=== PATIENT | female | born 1970 | race Caucasian/White ===

== ENCOUNTER 2017-06-05 23:06 | Inpatient (IN) | payer BC ==
[~2017-06-05] VITALS: Ht 172.7 cm; Wt 67.3 kg
[2017-06-05 23:09] VITALS: BP 147/68; PULSE 76; RESP 18; TEMP 98.8; O2SAT 99
[2017-06-05] MEDS ORDERED: CREO3000 PO (23:18)
[2017-06-05] MEDS ORDERED: ATEN50TA PO (23:18)
[2017-06-05] MEDS ORDERED: LISI40TA PO (23:18)
[2017-06-05 23:31] VITALS: BP 154/79; PULSE 74; RESP 18
[2017-06-06] VITALS (10 sets, daily range): BP systolic 90–127; BP diastolic 54–79; PULSE 60–86; RESP 14–19; TEMP 98–101.4; O2SAT 95–98
[2017-06-06] MEDS ORDERED: SODIUM CHLOR 0.9% 1000 ML INJ 1,000 ML IV ONE (00:45)
[2017-06-06] MEDS ORDERED: ONDANSETRON HCL 4 MG/2 ML VIAL IV PUSH ONE (00:45)
[2017-06-06] MEDS ORDERED: HYDROmorphone HCL PF 2 MG/ML VIAL IV PUSH ONE (00:45)
[2017-06-06 00:49] LABS: AUTOMATED NEUTROPHIL # 11.2 TH/MM3 (1.8-7.7); BASOPHIL # 0.1 TH/MM3 (0-0.2); BASOPHIL % 0.4 % (0.0-2.0); EOSINOPHIL # 0.4 TH/MM3 (0-0.4); HEMATOCRIT 42.2 % (35.0-46.0); HEMOGLOBIN 14.7 GM/DL (11.6-15.3); LYMPH % 11.9 % (9.0-44.0); LYMPHOCYTE # 1.6 TH/MM3 (1.0-4.8); MEAN CELL VOLUME 97.1 FL (80.0-100.0); MEAN CORPUSCULAR HEMOGLOBIN 33.9 PG (27.0-34.0); MEAN CORPUSCULAR HGB CONC 34.9 % (32.0-36.0); MEAN PLATELET VOLUME 8.1 FL (7.0-11.0); MONOCYTE # 0.3 TH/MM3 (0-0.9); NEUT % 82.7 % (16.0-70.0); PLATELET COUNT 193 TH/MM3 (150-450); RED BLOOD COUNT 4.35 MIL/MM3 (4.00-5.30); RED CELL DISTRIBUTION WIDTH 13.4 % (11.6-17.2); WHITE BLOOD COUNT 13.6 TH/MM3 (4.0-11.0)
[2017-06-06 00:50] LABS: INTERNATIONAL NORMALIZED RATIO 1.1 RATIO; PROTHROMBIN TIME - PATIENT 10.7 SEC (9.8-11.6)
[2017-06-06 00:51] LABS: ALBUMIN 4.2 GM/DL (3.4-5.0); ALT (GPT) 109 U/L (10-53); AST (GOT) 174 U/L (15-37); BICARBONATE 25.9 MEQ/L (21.0-32.0); BLOOD UREA NITROGEN 8 MG/DL (7-18); CALCIUM 9.4 MG/DL (8.5-10.1); CHLORIDE 95 MEQ/L (98-107); CREATININE 0.65 MG/DL (0.50-1.00); GLUCOSE,RANDOM 94 MG/DL (74-106); SODIUM (NA) 132 MEQ/L (136-145)
[2017-06-06 00:53] LABS: ALKALINE PHOSPHATASE 89 U/L (45-117); TOTAL PROTEIN 9.1 GM/DL (6.4-8.2)
[2017-06-06] MEDS ORDERED: IOHEXOL 350 MG/ML 10 ML VIAL (for RAD DIAG) IVCONTRAST ONE (01:28)
--- NOTE | 2017-06-06 01:42 | RADRPT ---
EXAM DATE/TIME: 06/06/2017 01:19 [facility] COMPARISON: No previous studies available for comparison. INDICATIONS : Abdomen pain. IV CONTRAST: 100 cc Omnipaque 350 (iohexol) IV ORAL CONTRAST: No oral contrast ingested. RADIATION DOSE: 6.57 CTDIvol (mGy) MEDICAL HISTORY : Pancreatitis. Hypertension. SURGICAL HISTORY : None. ENCOUNTER: Initial ACUITY: 1 day PAIN SCALE: 7/10 LOCATION: Bilateral abdomen TECHNIQUE: Volumetric scanning of the abdomen and pelvis was performed. Using automated exposure control and ad justment of the mA and/or kV according to patient size, radiation dose was kept as low as reasonably achievable to obtain optimal diagnostic quality images. DICOM format image data is available electro nically for review and comparison. FINDINGS: LOWER LUNGS: The visualized lower lungs are clear. LIVER: Homogeneous density without lesion. There is no dilation of the biliary tree. No calcified gallston es. SPLEEN: Normal size without lesion. PANCREAS: There is some slight stranding and minimal adjacent fluid concerning for pancreatitis. A few punctate calcifications along the pancreatic head. Mild prominence of the main pancreatic duct.. KIDNEYS: Normal in size and shape. There is no mass, stone or hydronephrosis. Complex cystic lesion measures 2.6 cm on the upper pole left kidney containing peripheral calcification. ADRENAL GLANDS: Within normal limits. VASCULAR: There is no aortic aneurysm. BOWEL/MESENTERY: The stomach, small bowel, and colon demonstrate no acute abnormality. There is no free intraperitone al air or fluid. ABDOMINAL WALL: Within normal limits. RETROPERITONEUM: There is no lymphadenopathy. BLADDER: No wall thickening or mass. REPRODUCTIVE: 3.1 cm soft tissue nodule left pelvis likely ovary. INGUINAL: There is no lymphadenopathy or hernia. MUSCULOSKELETAL: Within normal limits for patient age. CONCLUSION: 1. Findings consistent with acute pancreatitis. 2. Complex cystic lesion upper pole left kidney measures 2.6 cm. Outpatient nonemergent MRI recommend ed for further characterization. 3. Probable normal appearing left ovary measuring 3.1 cm. Followup nonemergent pelvic sonogram recomm ended. Jasson Mancuso MD on June 06, 2017 at 1:35 Board Certified Radiologist. This report was verified electronically.
[2017-06-06] MEDS: SODIUM CHLOR 0.9% 1000 ML INJ 1,000 ML IV SCH ×3 (02:35→22:35)
[2017-06-06] MEDS ORDERED: ACETAMINOPHEN 325 MG TAB PO PRN (02:45)
[2017-06-06] MEDS ORDERED: SODIUM CHLORIDE 0.9% FLUSH 10 ML FLUSH IV FLUSH PRN ×2 (02:45)
[2017-06-06] MEDS ORDERED: NALOXONE HCL 0.4 MG/ML AMP IV PUSH PRN (02:45)
[2017-06-06] MEDS: MORPHINE SULFATE 2 MG/ML SYRINGE IV PUSH PRN ×2 (03:34→12:28)
[2017-06-06] MEDS ORDERED: LORazepam 2 MG/ML VIAL IV PUSH PRN ×4 (04:00)
[2017-06-06] MEDS ORDERED: FLUMAZENIL 0.5 MG/5 ML VIAL IV PUSH PRN (04:00)
[2017-06-06] MEDS ORDERED: LORazepam 2 MG TAB PO PRN (04:00)
[2017-06-06] MEDS: MULTIVITAMIN INJ 10 ML, FOLIC ACID INJ 1 MG in SODIUM CHLORID 0.9% 500 ML INJ 500 ML IV SCH (07:55)
[2017-06-06] MEDS: THIAMINE INJ 100 MG in SODIUM CHLORIDE 0.9% INJ 100 ML IV SCH (07:55)
[2017-06-06] MEDS: SODIUM CHLORIDE 0.9% FLUSH 10 ML FLUSH IV FLUSH SCH ×2 (09:00→20:51)
[2017-06-06] MEDS: LISINOPRIL 20 MG TAB PO SCH (09:00)
[2017-06-06] MEDS: ATENOLOL 50 MG TAB PO SCH ×2 (09:27→20:51)
--- NOTE | 2017-06-06 09:35 | PD.CONS ---
HPI History of Present Illness This is a 47 year old who is currently admitted to [facility] ED with acute pancreatitis. Pt reports having two ERCPs with stents placed since March, the most recent one a few weeks ago with what sounds to be a temporary stent, no mention of stent on CT done in ER. Pt states she has had some intermittent abdominal pain since the most recent procedure but last night she began having excruciating generalized abdominal pains associated with nausea and vomiting. Denies hematemesis and coffee ground emesis. Describes the pain as sharp and stabbing, states it is constant. She feels a little better today since she has been in the hospital. Pt does report she has chronic pancreatitis and takes Creon [address] consistent with findings consistent with acute pancreatitis. Her lipase is over 10,000 and AST and ALT are elevated with normal T bili and alk phos. Pt does admit to drinking 1-2 glasses of wine, at first it sounded like almost every night but then she states mostly on the weekend. Pt admits to smoking 1/2 PPD. (Pooja Ron) PFSH Past Medical History Chronic pancreatitis HTN Past Surgical History ERCP x 2 (Pooja Ron) Coded Allergies: Penicillins (Verified Allergy, Intermediate, 06/05/17) Social History ETOH- unsure how much, initially states 1-2 glasses of wine a night but then said mostly only on the weekends Smokes 1/2 PPD Denies illicit drug use (Pooja Ron) Review of Systems Gastrointestinal: COMPLAINS OF: Abdominal pain, Constipation, Nausea, Vomiting , DENIES: Black stools, Bloody stools, Diarrhea, Difficulty Swallowing, Odynophagia, Swelling of Abdomen, Heartburn, Hematemesis (Pooja Ron) GI Exam Vitals I&O Vital Signs Date Time Temp Pulse Resp B/P (MAP) Pulse Ox O2 Delivery O2 Flow Rate FiO2 06/06/17 07:31 69 14 93/54 (67) 95 Room Air 06/06/17 03:46 86 18 104/58 (73) 98 Room Air 06/05/17 23:31 74 18 154/79 (104) 06/05/17 23:09 98.8 76 18 147/68 (94) 99 I/O 3/27/18 3/06/05/17 06/06/17 06/06/17 06/06/17 07:00 15:00 23:00 07:00 15:00 23:00 Intake Total 1101 ml Balance 1101 ml Intake IV Total 1101 ml Imaging Last Impressions Abdomen/Pelvis CT 06/05/17 9226 Signed Impressions: Service Date/Time: Tuesday, June 06, 2017 01:19 - CONCLUSION: 1. Findings consistent with acute pancreatitis. 2. Complex cystic lesion upper pole left kidney measures 2.6 cm. Outpatient nonemergent MRI recommended for further characterization. 3. Probable normal appearing left ovary measuring 3.1 cm. Followup nonemergent pelvic sonogram recommended. Jasson Mancuso MD Laboratory Test 06/05/17 23:50 06/06/17 00:23 White Blood Count 13.6 TH/MM3 Red Blood Count 4.35 MIL/MM3 Hemoglobin 14.7 GM/DL Hematocrit 42.2 % Mean Corpuscular Volume 97.1 FL Mean Corpuscular Hemoglobin 33.9 PG Mean Corpuscular Hemoglobin Concent 34.9 % Red Cell Distribution Width 13.4 % Platelet Count 193 TH/MM3 Mean Platelet Volume 8.1 FL Neutrophils (%) (Auto) 82.7 % Lymphocytes (%) (Auto) 11.9 % Monocytes (%) (Auto) 2.0 % Eosinophils (%) (Auto) 3.0 % Basophils (%) (Auto) 0.4 % Neutrophils # (Auto) 11.2 TH/MM3 Lymphocytes # (Auto) 1.6 TH/MM3 Monocytes # (Auto) 0.3 TH/MM3 Eosinophils # (Auto) 0.4 TH/MM3 Basophils # (Auto) 0.1 TH/MM3 CBC Comment DIFF FINAL Differential Comment Prothrombin Time 10.7 SEC Prothromb Time International Ratio 1.1 RATIO Activated Partial Thromboplast Time 29.3 SEC Blood Urea Nitrogen 8 MG/DL Creatinine 0.65 MG/DL Random Glucose 94 MG/DL Total Protein 9.1 GM/DL Albumin 4.2 GM/DL Calcium Level 9.4 MG/DL Alkaline Phosphatase 89 U/L Aspartate Amino Transf (AST/SGOT) 174 U/L Alanine Aminotransferase (ALT/SGPT) 109 U/L Total Bilirubin 1.0 MG/DL Sodium Level 132 MEQ/L Potassium Level 3.7 MEQ/L Chloride Level 95 MEQ/L Carbon Dioxide Level 25.9 MEQ/L Anion Gap 11 MEQ/L Lipase 32449 U/L Lactic Acid Level 1.0 mmol/L Physical Examination HEENT: Normocephalic; atraumatic CHEST: Even/unlabored CARDIAC: RRR ABDOMEN: Soft, nondistended, diffuse TTP, bowel sounds active EXTREMITIES: No clubbing, cyanosis, or edema. SKIN: Normal; no rash; no jaundice. 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 (Pooja Ron) Assessment and Plan Plan Assessment: - Acute pancreatitis S/P ERCP x 2 since March, most recently a few weeks ago, unsure of exact date. Sounds like temporary stent was placed. No mention of stent on CT done in ER. Reports symptoms fairly well controlled since procedure with intermittent abdominal pain but last night pain became excruciating with associated nausea and vomiting, denies hematemesis and coffee ground emesis. States there was a stone they were unable to remove during the procedure because it was "embedded in a crevice" still has her gallbladder Lipase-[id number] AST-174 ALT-109 Alk phos-89 T bili-1 CT abdomen and pelvis W IV contrast (06/06) --> Findings most consistent with acute pancreatitis - Chronic pancreatitis- takes Creon 4x/day Plan: MRCP Request records from [facility] regarding ERCP Monitor LFTs, lipase NPO IVF Pain control Further recommendations based on clinical course and results of above Pt has been seen and examined by myself and Dr. Nathan and this note is written on his behalf (Pooja Ron) Physician Comments Patient seen and examined Agree with above Continue with current supportive care Monitor labs MRCP unremarkable except for the pancreatitis Patient most likely has acute on chronic pancreatitis underlying etiology could be alcohol versus other we will rule out autoimmune Can consider endoscopic ultrasound to further evaluate We will need to review old records (Lucas Nathan MD) Pooja Ron Jun 06, 2017 09:35 Lucas Nathan MD Jun 06, 2017 22:40
--- NOTE | 2017-06-06 12:17 | HHI.HP ---
[facility] Candace Weir D.O. Admission Diagnosis Acute Pancreatitis Diagnoses: Travel History International Travel<30 Days: No Contact w/Intl Traveler <30 Da: No Traveled to Known Affected Are: No History of Present Illness Patient is a 47-year-old female with past medical history of hypertension and chronic pancreatitis who presented to the emergency room with complaints of epigastric pain with radiation to the back. It started at lunchtime yesterday she started feeling nauseous and started experiencing some abdominal pain. It progressively got worse overnight and at dinner she started throwing up and felt very nauseous. Her pain was a 10 out of 10 which prompted her to come to the emergency room. Her partner called her director cardiovascular, Dr. Snow, who encouraged him to go seek medical attention. Patient tells me that she had 2 recent ERCPs with the last one having a stent placed in her pancreas about 2 weeks ago. Currently, her pain is a 2-3 out of 10. She states she is cold but denies any fevers. Currently nausea is controlled. Denies any cough, sore throat, runny nose, burning with urination or increased urinary frequency. She is scheduled for an MRCP later today. Review of Systems Except as stated in HPI: all other systems reviewed are Neg Past Family Social History Past Medical History Chronic pancreatitis HTN Past Surgical History ERCP x 2 with stent placement Left ankle surgery. Reported Medications Reported Meds & Active Scripts Active Reported Atenolol 50 Mg Tab 50 Mg PO BID Creon (Pancrelipase) 3,000-9,500-15,000 Units Cap 1 Cap PO TIDPC Lisinopril 40 Mg Tab 40 Mg PO DAILY Allergies: Coded Allergies: Penicillins (Verified Allergy, Intermediate, 06/05/17) Family History Both parents had heart disease. Mother with emphysema and father with kidney problems. Social History ETOH- 1-2 glasses of wine a night Smokes 1/2 PPD but has been cutting down to a few cigarettes here and there. She has been smoking since the age of 14-15 years Denies illicit drug use Physical Exam Vital Signs Vital Signs Date Time Temp Pulse Resp B/P (MAP) Pulse Ox O2 Delivery O2 Flow Rate FiO2 06/06/17 10:34 74 99/61 (74) 06/06/17 09:27 98 Room Air 06/06/17 09:25 71 124/65 (84) 114/65 (81) 06/06/17 07:31 69 14 93/54 (67) 95 Room Air 06/06/17 03:46 86 18 104/58 (73) 98 Room Air 06/05/17 23:31 74 18 154/79 (104) 06/05/17 23:09 98.8 76 18 147/68 (94) 99 Physical Exam GENERAL: This is a well-nourished, well-developed patient, laying in bed SKIN: No rashes, ecchymoses or lesions. Cool and dry. HEAD: Atraumatic. Normocephalic. EYES: Pupils equal round and reactive. Extraocular motions intact. No scleral icterus. No injection or drainage. ENT: Nose without drainage. Throat without erythema. Uvula midline. Airway patent. NECK: Trachea midline. CARDIOVASCULAR: Regular rate and rhythm without murmurs. RESPIRATORY: Clear to auscultation. Breath sounds equal bilaterally. No wheezes. GASTROINTESTINAL: Abdomen soft, tender in the epigastric region, discomfort throughout, nondistended.No guarding, no peritoneal signs. MUSCULOSKELETAL: Extremities without edema. No calf tenderness. Negative Homans sign bilaterally. NEUROLOGICAL: Awake and alert. Motor and sensory grossly within normal limits.Normal speech. Laboratory Laboratory Tests Test 06/05/17 23:50 06/06/17 00:23 White Blood Count 13.6 Red Blood Count 4.35 Hemoglobin 14.7 Hematocrit 42.2 Mean Corpuscular Volume 97.1 Mean Corpuscular Hemoglobin 33.9 Mean Corpuscular Hemoglobin Concent 34.9 Red Cell Distribution Width 13.4 Platelet Count 193 Mean Platelet Volume 8.1 Neutrophils (%) (Auto) 82.7 Lymphocytes (%) (Auto) 11.9 Monocytes (%) (Auto) 2.0 Eosinophils (%) (Auto) 3.0 Basophils (%) (Auto) 0.4 Neutrophils # (Auto) 11.2 Lymphocytes # (Auto) 1.6 Monocytes # (Auto) 0.3 Eosinophils # (Auto) 0.4 Basophils # (Auto) 0.1 CBC Comment DIFF FINAL Differential Comment Prothrombin Time 10.7 Prothromb Time International Ratio 1.1 Activated Partial Thromboplast Time 29.3 Blood Urea Nitrogen 8 Creatinine 0.65 Random Glucose 94 Total Protein 9.1 Albumin 4.2 Calcium Level 9.4 Alkaline Phosphatase 89 Aspartate Amino Transf (AST/SGOT) 174 Alanine Aminotransferase (ALT/SGPT) 109 Total Bilirubin 1.0 Sodium Level 132 Potassium Level 3.7 Chloride Level 95 Carbon Dioxide Level 25.9 Anion Gap 11 Lipase 89948 Lactic Acid Level 1.0 Result Diagram: 06/05/17234906/05/172349 Imaging Last Impressions Abdomen/Pelvis CT 06/05/172345 Signed Impressions: Service Date/Time: Tuesday, June 06, 2017 01:19 - CONCLUSION: 1. Findings consistent with acute pancreatitis. 2. Complex cystic lesion upper pole left kidney measures 2.6 cm. Outpatient nonemergent MRI recommended for further characterization. 3. Probable normal appearing left ovary measuring 3.1 cm. Followup nonemergent pelvic sonogram recommended. MD Erin Pozo VTE Risk Assessment Caprini VTE Risk Assessment: No/Low Risk (score <= 1) Caprini Risk Assessment Model Point Value = 1 Point Value = 2 Point Value = 3 Point Value = 5 Age 41-60 Minor surgery BMI > 25 kg/m2 Swollen legs Varicose veins or History of unexplained or recurrent spontaneous Oral contraceptives or hormone replacement Sepsis (< 1 month) Serious lung disease, including pneumonia (< 1 month) Abnormal pulmonary function Acute myocardial infarction Congestive heart failure (< 1 month) History of inflammatory bowel disease Medical patient at bed rest Age 61-74 Arthroscopic surgery Major open surgery (> 45 min) Laparoscopic surgery (> 45 min) Malignancy Confined to bed (> 72 hours) Immobilizing plaster cast Central venous access Age >= 75 History of VTE Family history of VTE Factor V Leiden Prothrombin 03176Q Lupus anticoagulant Anticardiolipin antibodies Elevated serum homocysteine Heparin-induced thrombocytopenia Other congenital or acquired thrombophilia Stroke (< 1 month) Elective arthroplasty Hip, pelvis, or leg fracture Acute spinal cord injury (< 1 month) Prophylaxis Regimen Total Risk Factor Score Risk Level Prophylaxis Regimen 0-1 Low Early ambulation 2 Moderate Order ONE of the following: *Sequential Compression Device (SCD) *Heparin 5000 units SQ BID 3-4 Higher Order ONE of the following medications: *Heparin 5000 units SQ TID *Enoxaparin/Lovenox 40 mg SQ daily (WT < 150 kg, CrCl > 30 mL/min) *Enoxaparin/Lovenox 30 mg SQ daily (WT < 150 kg, CrCl > 10-29 mL/min) *Enoxaparin/Lovenox 30 mg SQ BID (WT < 150 kg, CrCl > 30 mL/min) AND/OR *Sequential Compression Device (SCD) 5 or more Highest Order ONE of the following medications: *Heparin 5000 units SQ TID (Preferred with Epidurals) *Enoxaparin/Lovenox 40 mg SQ daily (WT < 150 kg, CrCl > 30 mL/min) *Enoxaparin/Lovenox 30 mg SQ daily (WT < 150 kg, CrCl > 10-29 mL/min) *Enoxaparin/Lovenox 30 mg SQ BID (WT < 150 kg, CrCl > 30 mL/min) AND *Sequential Compression Device (SCD) Assessment and Plan Assessment and Plan pancreatitis w LFT elevation: s/p ERCP as an outpatient w stent placement [address] abd/pelvis shows acute pancreatitis. continue IVFs. Pain control w percocet and morphine IV prn. miralax/junaid-colace prn constipation. GI following. Pt scheduled for MRCP this pm. Advance diet per GI HTN: low normal. continue pt's home meds mild hyponatremia: monitor. EtOH use: Pt has been counseled to quit. She is on CIWA protocol at this time. monitor. DVT proph: SCDs Code Status full Discussed Condition With patient, pt's sig other. Jennyfer Sheehan MD Jun 06, 2017 12:17
[2017-06-06] MEDS ORDERED: DOCUSATE SODIUM 50 MG/SENNA 8.6 MG TAB PO PRN (12:45)
[2017-06-06 12:51] LABS: BILIRUBIN, URINE NEG (NEG); BLOOD, URINE NEG (NEG); GLUCOSE,URINE NEG (NEG); KETONE, URINE NEG (NEG); MUCUS URINE FEW /lpf (OCC); NITRITE,URINE NEG (NEG); URINE COLOR YELLOW (YELLW/STRAW); URINE LEUKOCYTE ESTERASE NEG (NEG)
[2017-06-06] MEDS: LORazepam 1 MG TAB PO PRN (15:44)
--- NOTE | 2017-06-06 17:09 | RADRPT ---
EXAM DATE/TIME: 06/06/2017 16:07 [facility] COMPARISON: CT ABDOMEN & PELVIS W CONTRAST, June 06, 2017, 1:19. INDICATIONS : Pancreatitis. Abdominal pain. MEDICAL HISTORY : None. SURGICAL HISTORY : ERCP with pancreatic stent. ENCOUNTER: Subsequent ACUITY: 2 day PAIN SCORE: 4/10 LOCATION: Right upper quadrant abdomen. TECHNIQUE: Multiplanar, multisequence magnetic resonance imaging of the abdomen was performed. High-resolution 3D dataset was utilized to reconstruct maximum-intensity projection (MIP) images. FINDINGS: INTRAHEPATIC BILE DUCTS: Within normal limits. No significant anatomical variant is present. EXTRAHEPATIC BILE DUCTS: The common bile duct measures 4 mm No stone or filling defect is identified. GALLBLADDER: No stones, wall thickening, or pericholecystic fluid. LIVER: Normal size and signal intensity. No concerning liver lesion is identified on this non-contrast exam. PANCREAS: Mild heterogeneity involving the pancreatic head and uncinate region with surrounding induration. Lauren earance is nonspecific. Mild prominence the pancreatic duct OTHER: The remaining visualized structures demonstrate no acute abnormality on this non-contrast exam. CONCLUSION: Findings compatible with focal pancreatitis. Iglesia Dolan MD on June 06, 2017 at 17:04 Board Certified Radiologist. This report was verified electronically.
[2017-06-06] MEDS: oxyCODONE/ACETAMINOPHEN 7.5 MG/325 MG TAB PO PRN (20:50)
--- NOTE | 2017-06-06 22:34 | EKG ---
Date Performed: 06/06/2017 Time Performed: 00:00:01 PTAGE: 47 years EKG: Sinus rhythm BORDERLINE LEFT AXIS DEVIATION BORDERLINE ECG NO PREVIOUS TRACING DOCTOR: Laurie Mcgarry Interpretating Date/Time 06/06/2017 22:33:53
[2017-06-07 03:59] VITALS: BP 104/51; PULSE 59; RESP 18; TEMP 98.2; O2SAT 98
[2017-06-07] MEDS: MULTIVITAMIN INJ 10 ML, FOLIC ACID INJ 1 MG in SODIUM CHLORID 0.9% 500 ML INJ 500 ML IV SCH (04:00)
[2017-06-07] MEDS: oxyCODONE/ACETAMINOPHEN 7.5 MG/325 MG TAB PO PRN ×3 (04:09→16:23)
[2017-06-07] MEDS: THIAMINE INJ 100 MG in SODIUM CHLORIDE 0.9% INJ 100 ML IV SCH (04:10)
[2017-06-07 07:04] LABS: AUTOMATED NEUTROPHIL # 1.7 TH/MM3 (1.8-7.7); BASOPHIL % 0.5 % (0.0-2.0); EOSINOPHIL # 0.3 TH/MM3 (0-0.4); EOSINOPHIL % 6.3 % (0.0-4.0); HEMATOCRIT 32.7 % (35.0-46.0); HEMOGLOBIN 11.5 GM/DL (11.6-15.3); LYMPH % 39.1 % (9.0-44.0); LYMPHOCYTE # 1.6 TH/MM3 (1.0-4.8); MEAN CELL VOLUME 97.9 FL (80.0-100.0); MEAN CORPUSCULAR HEMOGLOBIN 34.4 PG (27.0-34.0); MEAN CORPUSCULAR HGB CONC 35.1 % (32.0-36.0); MEAN PLATELET VOLUME 7.9 FL (7.0-11.0); MONO % 12.5 % (0.0-8.0); MONOCYTE # 0.5 TH/MM3 (0-0.9); NEUT % 41.6 % (16.0-70.0); PLATELET COUNT 124 TH/MM3 (150-450); RED BLOOD COUNT 3.34 MIL/MM3 (4.00-5.30); RED CELL DISTRIBUTION WIDTH 13.8 % (11.6-17.2)
[2017-06-07 07:40] LABS: ALKALINE PHOSPHATASE 58 U/L (45-117); ALT (GPT) 63 U/L (10-53); AST (GOT) 71 U/L (15-37); BICARBONATE 24.5 MEQ/L (21.0-32.0); BLOOD UREA NITROGEN 7 MG/DL (7-18); CALCIUM 8.5 MG/DL (8.5-10.1); CHLORIDE 105 MEQ/L (98-107); CREATININE 0.49 MG/DL (0.50-1.00); GLOMERULAR FILTRATION RATE 135 ML/MIN (>89); GLUCOSE,RANDOM 107 MG/DL (74-106); SODIUM (NA) 137 MEQ/L (136-145); TOTAL BILIRUBIN ADULT 0.7 MG/DL (0.2-1.0); TOTAL PROTEIN 6.9 GM/DL (6.4-8.2)
[2017-06-07 08:00] VITALS: BP_SYST 104; BP_SYST 105; BP_DIAS 50; BP_DIAS 57; PULSE 54; PULSE 92; RESP 18; RESP 19; TEMP 97.7; TEMP 97.8; O2SAT 90; O2SAT 95
[2017-06-07] MEDS: SODIUM CHLOR 0.9% 1000 ML INJ 1,000 ML IV SCH ×2 (08:35→18:35)
[2017-06-07] MEDS: LISINOPRIL 20 MG TAB PO SCH (09:00)
[2017-06-07] MEDS: ATENOLOL 50 MG TAB PO SCH ×2 (09:00→22:39)
[2017-06-07] MEDS ORDERED: POTASSIUM CHLORIDE 20 MEQ CONTROLLED RELEASE TAB PO ONE (09:00)
[2017-06-07] MEDS: POLYETHYLENE GLYCOL 17 GM PKG PO SCH (09:00)
[2017-06-07] MEDS: SODIUM CHLORIDE 0.9% FLUSH 10 ML FLUSH IV FLUSH SCH ×2 (09:05→22:44)
--- NOTE | 2017-06-07 11:46 | HHI.PR ---
Subjective Remarks Patient is feeling better. She does get sharp pains on and off however it is improved. Denies any nausea or vomiting at this time. Would like to advance her diet. Significant other, assisting with obtaining records from previous GI Objective Vitals Vital Signs Date Time Temp Pulse Resp B/P (MAP) Pulse Ox O2 Delivery O2 Flow Rate FiO2 06/07/17 08:00 97.8 54 19 105/50 (68) 95 06/07/17 03:59 98.2 59 18 104/51 (68) 98 06/06/17 23:42 98.0 60 18 90/55 (67) 96 06/06/17 20:46 98.0 06/06/17 20:00 101.4 71 18 120/57 (78) 98 06/06/17 16:00 100.3 77 18 118/59 (78) 98 06/06/17 14:59 (95) 06/06/17 12:30 65 19 127/79 (95) 98 Room Air I/O 06/06/17 06/06/17 06/06/17 06/07/17 06/07/17 06/07/17 06:59 14:59 22:59 06:59 14:59 22:59 Intake Total 2101 ml 360 ml Balance 2101 ml 360 ml Intake Oral 360 ml IV Total 2101 ml # Voids 2 2 # Bowel Movements 0 Result Diagram: 06/07/17 0551 06/07/17 0551 Imaging Last Impressions Cholangiopancreatography MRI 06/06/17 0000 Signed Impressions: Service Date/Time: Tuesday, June 06, 2017 16:07 - CONCLUSION: Findings compatible with focal pancreatitis. Iglesia Dolan MD Abdomen/Pelvis CT 06/05/17 2346 Signed Impressions: Service Date/Time: Tuesday, June 06, 2017 01:19 - CONCLUSION: 1. Findings consistent with acute pancreatitis. 2. Complex cystic lesion upper pole left kidney measures 2.6 cm. Outpatient nonemergent MRI recommended for further characterization. 3. Probable normal appearing left ovary measuring 3.1 cm. Followup nonemergent pelvic sonogram recommended. Jasson Mancuso MD Objective Remarks GENERAL: This is a well-nourished, well-developed patient. CARDIOVASCULAR: Regular rate and rhythm without murmurs. RESPIRATORY: Clear to auscultation. Breath sounds equal bilaterally. No wheezes. GASTROINTESTINAL: Abdomen soft, nontender at this time, nondistended. MUSCULOSKELETAL: Extremities without edema. No calf tenderness. Negative Homans sign bilaterally. NEUROLOGICAL: Awake and alert. Motor and sensory grossly within normal limits.Normal speech. A/P Assessment and Plan pancreatitis w LFT elevation: s/p ERCP as an outpatient w stent placement [address] abd/pelvis shows acute pancreatitis. continue IVFs. Pain control w percocet and morphine IV prn. miralax/junaid-colace prn constipation. GI following. MRCP showed focal pain. No nausea or vomiting. Will advance her diet to low-fat diet. LFTs trending down HTN: low normal. continue pt's home meds mild hyponatremia: resolved EtOH use: Pt has been counseled to quit. She is on CIWA protocol at this time. monitor. I did note a Tmax of 101.4 overnight which has resolved. Pt is feeling much better. No cough, u/a neg. WBC back to normal. check chest-xray. encourage IS use DVT proph: SCDs Discharge Planning f/u chest x-ray f/u recs from GI advance to low fat diet. Monitor Jennyfer Elizondo MD Jun 07, 2017 11:46
--- NOTE | 2017-06-07 11:50 | HHI.GIFU ---
Subjective Remarks Pt still with abd pain, says she needs her percocet every 4h. tolerating clears. (Shanae Harris) Objective Vitals I&O Vital Signs Date Time Temp Pulse Resp B/P (MAP) Pulse Ox O2 Delivery O2 Flow Rate FiO2 06/07/17 08:00 97.8 54 19 105/50 (68) 95 06/07/17 03:59 98.2 59 18 104/51 (68) 98 06/06/17 23:42 98.0 60 18 90/55 (67) 96 06/06/17 20:46 98.0 06/06/17 20:00 101.4 71 18 120/57 (78) 98 06/06/17 16:00 100.3 77 18 118/59 (78) 98 06/06/17 14:59 (95) 06/06/17 12:30 65 19 127/79 (95) 98 Room Air I/O 06/06/17 06/06/17 06/06/17 06/07/17 06/07/17 06/07/17 07:00 15:00 23:00 07:00 15:00 23:00 Intake Total 2101 ml 360 ml Balance 2101 ml 360 ml Intake Oral 360 ml IV Total 2101 ml # Voids 2 2 # Bowel Movements 0 Laboratory Laboratory Tests Test 06/06/17 12:25 06/07/17 05:51 Urine Color YELLOW Urine Turbidity CLEAR Urine pH 7.0 Urine Specific [place] 1.015 Urine Protein NEG Urine Glucose (UA) NEG Urine Ketones NEG Urine Occult Blood NEG Urine Nitrite NEG Urine Bilirubin NEG Urine Urobilinogen 2.0 Urine Leukocyte Esterase NEG Urine Mucus FEW Microscopic Urinalysis Comment CULT NOT INDICATED White Blood Count 4.0 Red Blood Count 3.34 Hemoglobin 11.5 Hematocrit 32.7 Mean Corpuscular Volume 97.9 Mean Corpuscular Hemoglobin 34.4 Mean Corpuscular Hemoglobin Concent 35.1 Red Cell Distribution Width 13.8 Platelet Count 124 Mean Platelet Volume 7.9 Neutrophils (%) (Auto) 41.6 Lymphocytes (%) (Auto) 39.1 Monocytes (%) (Auto) 12.5 Eosinophils (%) (Auto) 6.3 Basophils (%) (Auto) 0.5 Neutrophils # (Auto) 1.7 Lymphocytes # (Auto) 1.6 Monocytes # (Auto) 0.5 Eosinophils # (Auto) 0.3 Basophils # (Auto) 0.0 CBC Comment DIFF FINAL Differential Comment Blood Urea Nitrogen 7 Creatinine 0.49 Random Glucose 107 Total Protein 6.9 Albumin 3.0 Calcium Level 8.5 Alkaline Phosphatase 58 Aspartate Amino Transf (AST/SGOT) 71 Alanine Aminotransferase (ALT/SGPT) 63 Total Bilirubin 0.7 Sodium Level 137 Potassium Level 3.4 Chloride Level 105 Carbon Dioxide Level 24.5 Anion Gap 8 Estimat Glomerular Filtration Rate 135 Lipase 269 Imaging Last Impressions Cholangiopancreatography MRI 06/06/17 0000 Signed Impressions: Service Date/Time: Tuesday, June 06, 2017 16:07 - CONCLUSION: Findings compatible with focal pancreatitis. Iglesia Dolan MD Abdomen/Pelvis CT 06/05/17 2346 Signed Impressions: Service Date/Time: Tuesday, June 06, 2017 01:19 - CONCLUSION: 1. Findings consistent with acute pancreatitis. 2. Complex cystic lesion upper pole left kidney measures 2.6 cm. Outpatient nonemergent MRI recommended for further characterization. 3. Probable normal appearing left ovary measuring 3.1 cm. Followup nonemergent pelvic sonogram recommended. Jasson Mancuso MD Physical Exam HEENT: PERRL; normocephalic; atraumatic; no jaundice. CHEST: CTA CARDIAC: RRR ABDOMEN: Soft, mild distention, epigastric TTP; no hepatosplenomegaly; bowel sounds are present in all four quadrants. EXTREMITIES: No clubbing, cyanosis, or edema. SKIN: Normal; no rash; no jaundice. COMMUTATOR REPAIRER: No focal deficits; alert and oriented times three. (Shanae Harris [facility]) Assessment and Plan Plan Assessment: - Acute pancreatitis S/P ERCP x 2 since March, most recently a few weeks ago, unsure of exact date. Sounds like temporary stent was placed. No mention of stent on CT done in ER. Reports symptoms fairly well controlled since procedure with intermittent abdominal pain but last night pain became excruciating with associated nausea and vomiting, denies hematemesis and coffee ground emesis. States there was a stone they were unable to remove during the procedure because it was "embedded in a crevice" still has her gallbladder [id number] AST-174 ALT-109 Alk phos-89 T bili-1 CT abdomen and pelvis W IV contrast (06/06) --> Findings most consistent with acute pancreatitis - Chronic pancreatitis- takes Creon 4x/day 06/07/17 lipase now WNL. pt says she still has pain. no n/v. tolerating clears MRCP showed pancreatitis. LFTs trending down Plan: clears monitor labs await IGG4 Pt has been seen and examined by myself and Dr. Nathan and this note is written on his behalf (Shanae Harris) Physician Comments Seen and examined Agree with above Continue with current supportive care Monitor labs With the way that the patient has presented and her course has taken it is very conceivable that she passed a stone or sludge that may have caused the pancreatitis event With this resolving I would say at this point we can advance her diet Because of her chronic pancreatitis the patient will need long-term pain management (Lucas Nathan MD) Shanae Harris Jun 07, 2017 11:50 Lucas Nathan MD Jun 07, 2017 21:43
[2017-06-07 12:00] VITALS: BP 117/67; PULSE 52; RESP 18; TEMP 98.3; O2SAT 98
--- NOTE | 2017-06-07 13:54 | RADRPT ---
EXAM DATE/TIME: 06/07/2017 13:14 [place] COMPARISON: No previous studies available for comparison. INDICATIONS : Short of breath. MEDICAL HISTORY : None. SURGICAL HISTORY : ERCP with pancreatic stent. ENCOUNTER: Subsequent ACUITY: 2 days PAIN SCORE: 0/10 LOCATION: chest FINDINGS: PA and lateral views of the chest demonstrate the lungs to be symmetrically aerated without evidence of mass, infiltrate or effusion. The cardiomediastinal contours are unremarkable. Osseous structure s are intact. CONCLUSION: Normal examination for a patient of this age. Miki Corbett MD on June 07, 2017 at 13:52 Board Certified Radiologist. This report was verified electronically.
[2017-06-07 16:00] VITALS: BP 158/70; PULSE 57; RESP 18; TEMP 98.2; O2SAT 98
[2017-06-07] MEDS: ONDANSETRON HCL 4 MG/2 ML VIAL IVP PRN ×2 (16:23→22:40)
[2017-06-07 18:00] VITALS: BP 155/73; PULSE 64; RESP 20; TEMP 98.4; O2SAT 98
[2017-06-07] MEDS: oxyCODONE/ACETAMINOPHEN 10 MG/325 MG TAB PO PRN (22:39)
[2017-06-08] VITALS: BP 122/78; PULSE 50; RESP 18; TEMP 97.8; O2SAT 97
[2017-06-08] MEDS: MULTIVITAMIN INJ 10 ML, FOLIC ACID INJ 1 MG in SODIUM CHLORID 0.9% 500 ML INJ 500 ML IV SCH (03:58)
[2017-06-08 04:00] VITALS: BP 106/62; PULSE 60; RESP 18; TEMP 97.8; O2SAT 96
[2017-06-08] MEDS: THIAMINE INJ 100 MG in SODIUM CHLORIDE 0.9% INJ 100 ML IV SCH (04:00)
[2017-06-08 08:00] VITALS: BP 142/67; PULSE 54; RESP 15; TEMP 97.7; O2SAT 97
--- NOTE | 2017-06-08 08:20 | HHI.PR ---
Subjective Remarks This is a pleasant 47 y/o Female with Hypertension, chronic pancreatitis, who came to ER with epigastric pain, nausea followed by GI specialist Patient tells me that she had 2 recent ERCPs with the last one having a stent placed in her pancreas about 2 weeks ago, Patient discussed by Charge Nurse with GI specialist Doctor Jac and recommended for discharge today and follow by GI specialist as outpatient. continue Home medicines. Objective Vital Signs Date Time Temp Pulse Resp B/P (MAP) Pulse Ox O2 Delivery O2 Flow Rate FiO2 06/08/17 04:00 97.8 60 18 106/62 (77) 96 06/08/17 00:00 97.8 50 18 122/78 (93) 97 06/07/17 18:00 98.4 64 20 155/73 (100) 98 06/07/17 16:00 98.2 57 18 158/70 (99) 98 06/07/17 12:00 98.3 52 18 117/67 (84) 98 I/O 06/07/17 06/07/17 06/07/17 06/08/17 06/08/17 06/08/17 07:00 15:00 23:00 07:00 15:00 23:00 Intake Total 360 ml 480 ml 280 ml Balance 360 ml 480 ml 280 ml Intake Oral 360 ml 480 ml 280 ml # Voids 2 3 2 # Bowel Movements 0 0 0 Result Diagram: 06/07/17 0551 06/07/17 0551 Imaging Last Impressions Chest X-Ray 06/07/17 0000 Signed Impressions: Service Date/Time: May 13:14 - CONCLUSION: Normal examination for a patient of this age. Miki Corbett MD Cholangiopancreatography MRI 06/06/17 0000 Signed Impressions: Service Date/Time: Tuesday, June 06, 2017 16:07 - CONCLUSION: Findings compatible with focal pancreatitis. Iglesia Dolan MD Abdomen/Pelvis CT 06/05/17 2346 Signed Impressions: Service Date/Time: Tuesday, June 06, 2017 01:19 - CONCLUSION: 1. Findings consistent with acute pancreatitis. 2. Complex cystic lesion upper pole left kidney measures 2.6 cm. Outpatient nonemergent MRI recommended for further characterization. 3. Probable normal appearing left ovary measuring 3.1 cm. Followup nonemergent pelvic sonogram recommended. Jasson F. Tocci, MD Procedures MRCP no contrast Other Results Laboratory Tests Test 06/05/17 23:50 06/06/17 00:23 06/06/17 12:25 06/07/17 05:51 Prothrombin Time 10.7 SEC Prothromb Time International Ratio 1.1 RATIO Activated Partial Thromboplast Time 29.3 SEC Lactic Acid Level 1.0 mmol/L Urine Color YELLOW Urine Turbidity CLEAR Urine pH 7.0 Urine Specific [place] 1.015 Urine Protein NEG mg/dL Urine Glucose (UA) NEG mg/dL Urine Ketones NEG mg/dL Urine Occult Blood NEG Urine Nitrite NEG Urine Bilirubin NEG Urine Urobilinogen 2.0 MG/DL Urine Leukocyte Esterase NEG Urine Mucus FEW /lpf Microscopic Urinalysis Comment CULT NOT INDICATED White Blood Count 4.0 TH/MM3 Red Blood Count 3.34 MIL/MM3 Hemoglobin 11.5 GM/DL Hematocrit 32.7 % Mean Corpuscular Volume 97.9 FL Mean Corpuscular Hemoglobin 34.4 PG Mean Corpuscular Hemoglobin Concent 35.1 % Red Cell Distribution Width 13.8 % Platelet Count 124 TH/MM3 Mean Platelet Volume 7.9 FL Neutrophils (%) (Auto) 41.6 % Lymphocytes (%) (Auto) 39.1 % Monocytes (%) (Auto) 12.5 % Eosinophils (%) (Auto) 6.3 % Basophils (%) (Auto) 0.5 % Neutrophils # (Auto) 1.7 TH/MM3 Lymphocytes # (Auto) 1.6 TH/MM3 Monocytes # (Auto) 0.5 TH/MM3 Eosinophils # (Auto) 0.3 TH/MM3 Basophils # (Auto) 0.0 TH/MM3 CBC Comment DIFF FINAL Differential Comment Blood Urea Nitrogen 7 MG/DL Creatinine 0.49 MG/DL Random Glucose 107 MG/DL Total Protein 6.9 GM/DL Albumin 3.0 GM/DL Calcium Level 8.5 MG/DL Alkaline Phosphatase 58 U/L Aspartate Amino Transf (AST/SGOT) 71 U/L Alanine Aminotransferase (ALT/SGPT) 63 U/L Total Bilirubin 0.7 MG/DL Sodium Level 137 MEQ/L Potassium Level 3.4 MEQ/L Chloride Level 105 MEQ/L Carbon Dioxide Level 24.5 MEQ/L Anion Gap 8 MEQ/L Estimat Glomerular Filtration Rate 135 ML/MIN Lipase 269 U/L Objective Remarks GENERAL: Well developed patient in no acute distress. CARDIOVASCULAR: Regular rate and rhythm without murmurs. RESPIRATORY: Clear to auscultation. Breath sounds equal bilaterally. No wheezes. GASTROINTESTINAL: Abdomen soft, nontender at this time, nondistended. MUSCULOSKELETAL: Extremities without edema. No calf tenderness. Negative Homans sign bilaterally. NEUROLOGICAL: Awake and alert. Motor and sensory grossly within normal limits.Normal speech. Medications and IVs Current Medications Medications (Trade) Dose Ordered Sig/[place] Route Start Time Stop Time Status Last Admin Sodium Chloride 1,000 ml @ 100 mls/hr Q10H IV 06/06/17 02:35 06/06/17 12:22 (NS Flush) 2 ml UNSCH PRN IV FLUSH 06/06/17 02:45 (NS Flush) 2 ml BID IV FLUSH 06/06/17 09:00 06/07/17 22:44 (Tylenol) 650 mg Q4H PRN PO 06/06/17 02:45 06/06/17 18:38 (Zofran Inj) 4 mg Q6H PRN IVP 06/06/17 02:45 06/07/17 22:40 (Narcan Inj) 0.4 mg UNSCH PRN IV PUSH 06/06/17 02:45 (Morphine Inj) 2 mg Q3H PRN IV PUSH 06/06/17 02:45 06/06/17 12:28 (Tenormin) 50 mg BID PO 06/06/17 09:00 06/07/17 22:39 (Prinivil) 40 mg DAILY PO 06/06/17 09:00 Multivitamins 10 ml/Folic Acid 1 mg/Sodium Chloride 510.2 ml @ 125 mls/hr Q24H IV 06/06/17 04:00 06/11/17 03:59 06/08/17 03:58 Thiamine HCl 100 mg/Sodium Chloride 101 ml @ 100 mls/hr Q24H IV 06/06/17 04:00 06/09/17 03:59 06/07/17 04:10 (Vitamin B1) 100 mg DAILY PO 06/09/17 09:00 (Romazicon Inj) 0.2 mg Q1M PRN IV PUSH 06/06/17 04:00 (Ativan) 1 mg Q4H PRN PO 06/06/17 04:00 06/06/17 15:44 (Ativan Inj) 1 mg Q4H PRN IV PUSH 06/06/17 04:00 (Ativan) 2 mg Q2H PRN PO 06/06/17 04:00 (Ativan Inj) 2 mg Q2H PRN IV PUSH 06/06/17 04:00 (Ativan Inj) 2 mg Q1H PRN IV PUSH 06/06/17 04:00 (Ativan Inj) 2 mg Q15M PRN IV PUSH 06/06/17 04:00 (Percocet 7.5-325 Mg) 1 tab Q4H PRN PO 06/06/17 12:45 06/07/17 16:23 (Percocet 10-325 Mg) 1 tab Q6H PRN PO 06/06/17 12:45 06/07/17 22:39 (Miralax) 17 gm DAILY PO 06/07/17 09:00 (Shelly-Colace) 1 tab BID PRN PO 06/06/17 12:45 A/P Assessment and Plan -Acute Pancreatitis status post ERCP x 2 since March temporary stent placed, GI specialist following, CT Abdomen and Pelvis consistent with acute pancreatitis. patient now eating diet without difficulty , discussed by Charge Nurse with GI specialist recommended for follow up as outpatient by GI specialist continue Home medicines. -Chronic Pancreatitis she takes Creon four times a day, Lipase within normal limits, MRCP showed Pancreatitis, LFTs trending down as per GI specialist probable has passed a stone, will need exterminator termite pain management. -Hypertension controlled to continue Home medicines -EtOH abuse strongly recommended to stop drinking behavior, [facility] protocol -Fever Improved with no signs of infection. DVT proph: SCDs Discharge Planning Discharge Home today. Rick Flores MD Jun 08, 2017 08:20
[2017-06-08] MEDS: LISINOPRIL 20 MG TAB PO SCH (08:22)
[2017-06-08] MEDS: LORazepam 1 MG TAB PO PRN (08:22)
[2017-06-08] MEDS: POLYETHYLENE GLYCOL 17 GM PKG PO SCH (08:23)
[2017-06-08] MEDS: oxyCODONE/ACETAMINOPHEN 10 MG/325 MG TAB PO PRN (08:23)
[2017-06-08] MEDS: ATENOLOL 50 MG TAB PO SCH (08:26)
[2017-06-08 08:44] LABS: AUTOMATED NEUTROPHIL # 1.8 TH/MM3 (1.8-7.7); BASOPHIL % 0.8 % (0.0-2.0); EOSINOPHIL # 0.3 TH/MM3 (0-0.4); EOSINOPHIL % 7.8 % (0.0-4.0); HEMATOCRIT 33.8 % (35.0-46.0); HEMOGLOBIN 11.5 GM/DL (11.6-15.3); LYMPH % 37.3 % (9.0-44.0); LYMPHOCYTE # 1.6 TH/MM3 (1.0-4.8); MEAN CORPUSCULAR HEMOGLOBIN 33.6 PG (27.0-34.0); MEAN CORPUSCULAR HGB CONC 33.9 % (32.0-36.0); MEAN PLATELET VOLUME 8.1 FL (7.0-11.0); MONO % 11.8 % (0.0-8.0); MONOCYTE # 0.5 TH/MM3 (0-0.9); NEUT % 42.3 % (16.0-70.0); PLATELET COUNT 123 TH/MM3 (150-450); RED BLOOD COUNT 3.41 MIL/MM3 (4.00-5.30); RED CELL DISTRIBUTION WIDTH 13.9 % (11.6-17.2); WHITE BLOOD COUNT 4.2 TH/MM3 (4.0-11.0)
[2017-06-08] MEDS: SODIUM CHLORIDE 0.9% FLUSH 10 ML FLUSH IV FLUSH SCH (09:00)
[2017-06-08 09:14] LABS: AST (GOT) 79 U/L (15-37); BICARBONATE 24.5 MEQ/L (21.0-32.0); BLOOD UREA NITROGEN 5 MG/DL (7-18); CALCIUM 8.6 MG/DL (8.5-10.1); CHLORIDE 107 MEQ/L (98-107); CREATININE 0.51 MG/DL (0.50-1.00); GLOMERULAR FILTRATION RATE 129 ML/MIN (>89); GLUCOSE,RANDOM 88 MG/DL (74-106); SODIUM (NA) 140 MEQ/L (136-145)
[2017-06-08 09:15] LABS: ALT (GPT) 71 U/L (10-53)
[2017-06-08 09:17] LABS: ALKALINE PHOSPHATASE 56 U/L (45-117); TOTAL BILIRUBIN ADULT 0.4 MG/DL (0.2-1.0)
[2017-06-08] MEDS ORDERED: OXYC1TAB35 PO (10:24)
--- NOTE | 2017-06-08 10:26 | HHI.DS ---
Discharge Summary Admission Date Jun 06, 2017 at 02:29 Discharge Date: Jun 08, 2017 Admitting Diagnosis Acute Pancreatitis (1) Acute pancreatitis ICD Code: K85.90 - Acute pancreatitis without necrosis or infection, unspecified Diagnosis: Principal (2) Chronic pancreatitis ICD Code: K86.1 - Other chronic pancreatitis Diagnosis: Principal Procedures MRCP NO CONTRAST Brief History - From Admission Patient is a 47-year-old female with past medical history of hypertension and chronic pancreatitis who presented to the emergency room with complaints of epigastric pain with radiation to the back. It started at lunchtime yesterday she started feeling nauseous and started experiencing some abdominal pain. It progressively got worse overnight and at dinner she started throwing up and felt very nauseous. Her pain was a 10 out of 10 which prompted her to come to the emergency room. Her partner called her field services manager, Dr. Snow, who encouraged him to go seek medical attention. Patient tells me that she had 2 recent ERCPs with the last one having a stent placed in her pancreas about 2 weeks ago. Currently, her pain is a 2-3 out of 10. She states she is cold but denies any fevers. Currently nausea is controlled. Denies any cough, sore throat, runny nose, burning with urination or increased urinary frequency. She is scheduled for an MRCP later today. CBC/BMP: 06/08/17 0750 06/08/17 0750 Significant Findings Laboratory Tests Test 06/05/17 23:50 06/06/17 00:23 06/06/17 12:25 06/07/17 05:51 White Blood Count 13.6 TH/MM3 (4.0-11.0) Neutrophils (%) (Auto) 82.7 % (16.0-70.0) Neutrophils # (Auto) 11.2 TH/MM3 (1.8-7.7) 1.7 TH/MM3 (1.8-7.7) Total Protein 9.1 GM/DL (6.4-8.2) Aspartate Amino Transf (AST/SGOT) 174 U/L (15-37) 71 U/L (15-37) Alanine Aminotransferase (ALT/SGPT) 109 U/L (10-53) 63 U/L (10-53) Sodium Level 132 MEQ/L (136-145) Chloride Level 95 MEQ/L (98-107) Lipase 99662 U/L (73-393) Urine Mucus FEW /lpf (OCC) Red Blood Count 3.34 MIL/MM3 (4.00-5.30) Hemoglobin 11.5 GM/DL (11.6-15.3) Hematocrit 32.7 % (35.0-46.0) Mean Corpuscular Hemoglobin 34.4 PG (27.0-34.0) Platelet Count 124 TH/MM3 (150-450) Monocytes (%) (Auto) 12.5 % (0.0-8.0) Eosinophils (%) (Auto) 6.3 % (0.0-4.0) Creatinine 0.49 MG/DL (0.50-1.00) Random Glucose 107 MG/DL (74-106) Albumin 3.0 GM/DL (3.4-5.0) Potassium Level 3.4 MEQ/L (3.5-5.1) Test 06/08/17 07:50 Red Blood Count 3.41 MIL/MM3 (4.00-5.30) Hemoglobin 11.5 GM/DL (11.6-15.3) Hematocrit 33.8 % (35.0-46.0) Platelet Count 123 TH/MM3 (150-450) Monocytes (%) (Auto) 11.8 % (0.0-8.0) Eosinophils (%) (Auto) 7.8 % (0.0-4.0) Blood Urea Nitrogen 5 MG/DL (7-18) Albumin 3.0 GM/DL (3.4-5.0) Aspartate Amino Transf (AST/SGOT) 79 U/L (15-37) Alanine Aminotransferase (ALT/SGPT) 71 U/L (10-53) Imaging Last Impressions Chest X-Ray 06/07/17 0000 Signed Impressions: Service Date/Time: May 13:14 - CONCLUSION: Normal examination for a patient of this age. Miki Corbett MD Cholangiopancreatography MRI 06/06/17 0000 Signed Impressions: Service Date/Time: Tuesday, June 06, 2017 16:07 - CONCLUSION: Findings compatible with focal pancreatitis. Iglesia Dolan MD Abdomen/Pelvis CT 06/05/17 2346 Signed Impressions: Service Date/Time: Tuesday, June 06, 2017 01:19 - CONCLUSION: 1. Findings consistent with acute pancreatitis. 2. Complex cystic lesion upper pole left kidney measures 2.6 cm. Outpatient nonemergent MRI recommended for further characterization. 3. Probable normal appearing left ovary measuring 3.1 cm. Followup nonemergent pelvic sonogram recommended. Jasson Mancuso MD PE at Discharge GENERAL: Well developed patient in no acute distress. CARDIOVASCULAR: Regular rate and rhythm without murmurs. RESPIRATORY: Clear to auscultation. Breath sounds equal bilaterally. No wheezes. GASTROINTESTINAL: Abdomen soft, nontender at this time, nondistended. MUSCULOSKELETAL: Extremities without edema. No calf tenderness. Negative Homans sign bilaterally. NEUROLOGICAL: Awake and alert. Motor and sensory grossly within normal limits.Normal speech. Hospital Course This is a pleasant 47 y/o Female with Hypertension, chronic pancreatitis, who came to ER with epigastric pain, nausea followed by GI specialist Patient tells me that she had 2 recent ERCPs with the last one having a stent placed in her pancreas about 2 weeks ago, Patient discussed by Charge Nurse with GI specialist Doctor Nathan and recommended for discharge today and follow by GI specialist as outpatient. continue Home medicines. Assessment and Plan -Acute Pancreatitis status post ERCP x 2 since March temporary stent placed, GI specialist following, CT Abdomen and Pelvis consistent with acute pancreatitis. patient now eating diet without difficulty , discussed by Charge Nurse with GI specialist recommended for follow up as outpatient by GI specialist continue Home medicines. -Chronic Pancreatitis she takes Creon four times a day, Lipase within normal limits, MRCP showed Pancreatitis, LFTs trending down as per GI specialist probable has passed a stone, will need watermelon inspector pain management. -Hypertension controlled to continue Home medicines -EtOH abuse strongly recommended to stop drinking behavior, [facility] protocol -Fever Improved with no signs of infection. DVT proph: SCDs Discharge Planning Discharge Home today. Pt Condition on Discharge: Good Discharge Disposition: Discharge Home Discharge Time: <= 30 minutes Discharge Instructions DIET: Follow Instructions for: Heart Healthy Diet Activities you can perform: Regular-No Restrictions Rick Flores MD Jun 08, 2017 10:26
--- NOTE | 2017-06-08 11:48 | HHI.GIFU ---
Subjective Remarks Up ambulating in the warner Awake, alert and conversational Still has some mild abdominal soreness but resolving Probable home today Afebrile (Sophia Ramesh) Objective Vitals I&O Vital Signs Date Time Temp Pulse Resp B/P (MAP) Pulse Ox O2 Delivery O2 Flow Rate FiO2 06/08/17 08:00 97.7 54 15 142/67 (92) 97 06/08/17 04:00 97.8 60 18 106/62 (77) 96 06/08/17 00:00 97.8 50 18 122/78 (93) 97 06/07/17 18:00 98.4 64 20 155/73 (100) 98 06/07/17 16:00 98.2 57 18 158/70 (99) 98 06/07/17 12:00 98.3 52 18 117/67 (84) 98 I/O 06/07/17 06/07/17 06/07/17 06/08/17 06/08/17 06/08/17 07:00 15:00 23:00 07:00 15:00 23:00 Intake Total 360 ml 480 ml 280 ml Balance 360 ml 480 ml 280 ml Intake Oral 360 ml 480 ml 280 ml # Voids 2 3 2 # Bowel Movements 0 0 0 Laboratory Laboratory Tests Test 06/08/17 07:50 White Blood Count 4.2 Red Blood Count 3.41 Hemoglobin 11.5 Hematocrit 33.8 Mean Corpuscular Volume 99.0 Mean Corpuscular Hemoglobin 33.6 Mean Corpuscular Hemoglobin Concent 33.9 Red Cell Distribution Width 13.9 Platelet Count 123 Mean Platelet Volume 8.1 Neutrophils (%) (Auto) 42.3 Lymphocytes (%) (Auto) 37.3 Monocytes (%) (Auto) 11.8 Eosinophils (%) (Auto) 7.8 Basophils (%) (Auto) 0.8 Neutrophils # (Auto) 1.8 Lymphocytes # (Auto) 1.6 Monocytes # (Auto) 0.5 Eosinophils # (Auto) 0.3 Basophils # (Auto) 0.0 CBC Comment DIFF FINAL Differential Comment Blood Urea Nitrogen 5 Creatinine 0.51 Random Glucose 88 Total Protein 7.0 Albumin 3.0 Calcium Level 8.6 Alkaline Phosphatase 56 Aspartate Amino Transf (AST/SGOT) 79 Alanine Aminotransferase (ALT/SGPT) 71 Total Bilirubin 0.4 Sodium Level 140 Potassium Level 4.0 Chloride Level 107 Carbon Dioxide Level 24.5 Anion Gap 9 Estimat Glomerular Filtration Rate 129 Lipase 145 Imaging Last Impressions Chest X-Ray 06/07/17 0000 Signed Impressions: Service Date/Time: May 13:14 - CONCLUSION: Normal examination for a patient of this age. Miki Corbett MD Cholangiopancreatography MRI 06/06/17 0000 Signed Impressions: Service Date/Time: Tuesday, June 06, 2017 16:07 - CONCLUSION: Findings compatible with focal pancreatitis. Iglesia Dolan MD Abdomen/Pelvis CT 06/05/17 2346 Signed Impressions: Service Date/Time: Tuesday, June 06, 2017 01:19 - CONCLUSION: 1. Findings consistent with acute pancreatitis. 2. Complex cystic lesion upper pole left kidney measures 2.6 cm. Outpatient nonemergent MRI recommended for further characterization. 3. Probable normal appearing left ovary measuring 3.1 cm. Followup nonemergent pelvic sonogram recommended. Jassno Mancuso MD Physical Exam HEENT: PERRL; normocephalic; atraumatic; no jaundice. CHEST: Essentially clear without rhonchi CARDIAC: Heart rate 58, regular ABDOMEN: Soft, mild distention, mild epigastric and gastric soreness but improved; no hepatosplenomegaly; bowel sounds are present in all four quadrants. EXTREMITIES: No clubbing, cyanosis, or edema. SKIN: Normal; no rash; no jaundice. CRACKING MACHINE OPERATOR: No focal deficits; alert and oriented times three. (Sophia Ramesh) Assessment and Plan Plan Assessment: - Acute pancreatitis S/P ERCP x 2 since March, most recently a few weeks ago, unsure of exact date. Sounds like temporary stent was placed. No mention of stent on CT done in ER. Reports symptoms fairly well controlled since procedure with intermittent abdominal pain but last night pain became excruciating with associated nausea and vomiting, denies hematemesis and coffee ground emesis. States there was a stone they were unable to remove during the procedure because it was "embedded in a crevice" still has her gallbladder Lipase-[id number] AST-174 ALT-109 Alk phos-89 T bili-1 CT abdomen and pelvis W IV contrast (06/06) --> Findings most consistent with acute pancreatitis - Chronic pancreatitis- takes Creon 4x/day 06/07/17 lipase now WNL. pt says she still has pain. no n/v. tolerating clears MRCP showed pancreatitis. LFTs trending down 06/08/17 patient is up ambulating in the warner seems to be feeling better. Hopeful to go home today. Discussed her diet, activity, stressors, she is going to follow-up with her usual GI group Plan: Diet discussed low-fat heart healthy monitor labs, current hemoglobin stable at 11.5 await IGG4 still pending Patient is planning for discharge today, currently followed by another GI group , but encouraged her to follow up as an outpatient Pt has been seen and examined by myself and Dr. Nathan and this note is written on his behalf (Sophia Ramesh) Physician Comments Patient seen and examined Agree with above Continue with current supportive care Monitor labs Okay for discharge from a GI standpoint (Lucas Nathan MD) Sophia Ramesh Jun 08, 2017 11:47 Lucas Nathan MD Jun 08, 2017 23:49
[2017-06-09] MEDS ORDERED: THIAMINE HCL 100 MG TAB PO SCH (09:00)
== END 2017-06-08 11:56 | disposition home or self-care (01) | DRG 439 ==
LOC: NEPE 23:06 → NEDA 06-06 02:29 → NEDH 06-06 06:39 → N06B 06-06 15:13
PROVIDERS: ADMIT Internal Medicine; ATTEND Internal Medicine
DX: K85.90 Acute pancreatitis without necrosis or infection, unspecified (principal); E87.1 Hypo-osmolality and hyponatremia; I10 Essential (primary) hypertension; K86.1 Other chronic pancreatitis; F10.10 Alcohol abuse, uncomplicated; F17.210 Nicotine dependence, cigarettes, uncomplicated
CPT/HCPCS: 71046; 74177; 74181; 76377; 80053; 81001; 82784; 82787; 83605; 83690; 85025; 85610; 85730; 93005; 94150; J1170; J2270; J2405; J3411; J7030; J7040; Q9967